=== PATIENT | female | born 2000 | race Caucasian/White ===

== ENCOUNTER 2021-01-28 16:47 | Emergency (ER) | payer BC ==
[~2021-01-28] VITALS: Ht 162.6 cm; Wt 90.7 kg
[~2021-01-28 16:47] MED LIST: IBUPROFEN 200200 M1; IBUPROFEN 200200 M1 PO; IBUPROFEN 600600 M1 PO; NOHOMEMEDICATIONS; ZANTAC 150MG T150 MG PO; [UNRECOGNIZED DRUG - OTHER]
[2021-01-28] MEDS ORDERED: NAPROSYN500 MG PO (17:54)
[2021-01-28 17:58] VITALS: BP 146/72
== END 2021-01-28 17:59 | disposition home or self-care (01) ==
LOC: M.ERS 16:47
DX: M77.8 Other enthesopathies, not elsewhere classified (principal)